=== PATIENT | male | born 1995 | race Hispanic/Latino ===

== ENCOUNTER 2025-01-14 14:52 | Emergency (ER) | payer OTHER ==
[~2025-01-14] VITALS: Ht 172.7 cm; Wt 72.6 kg
--- NOTE | 2025-01-14 15:42 | ERN ---
General Chief Complaint: Abdominal Pain Stated Complaint: ABD PAIN Time Seen by MD: 14:54 Source: patient History of Present Illness Initial Comments Anand, a 29 year old male patient came to the ER with symptoms of left upper quadrant pain. Patient has had these symptoms for the last 2 weeks. Patient describes sensation mostly as bloating. Patient rates the pain as 8/10 last night but around 5 today. Pt followed up with his GI doc this week and was evaluated for pancreatitis, but his labs came back normal. Pt used Dicyclomine for the pain, but says it only gave him little relief. Patient denies nausea, vomiting, diarrhea, bloody stools, fever, and change in bowel movements. Pt has a PMH of Ulcerative colitis and is in remission on Entyvio. His recent colonoscopies did not show any inflammation or ulcers. Allergies: Coded Allergies: No Known Drug Allergies (Unverified Allergy, Unknown, 01/14/25) Past Medical History Past Medical History: Other Medical History Other: ulcerative colitis Past Surgical History: None ROS Dictation CONSTITUTIONAL: No chills, no fever, no weakness, no diaphoresis, no malaise. HEAD/FACE: No signs of trauma. EENT: No eye pain, no blurred vision, no tearing, no double vision, no ear pain, no ear discharge, no nose pain, no nasal congestion, no throat pain, no throat swelling, no mouth pain. RESPIRATORY: No cough, no SOB, no orthopnea, no PND, no wheezing. CARDIOVASCULAR: No chest pain, no edema, no palpitations, no syncope. GASTROINTESTINAL/ABDOMINAL: Left upper quadrant Abdominal pain, no constipation, no diarrhea, no nausea, no vomiting. GENITOURINARY: No abnormal discharge, no dysuria, no frequent urination, no hematuria. No complaints of pain in the genitals. MUSCULOSKELETAL: No back pain, no gout, no joint pain, no joint swelling, no muscle pain, no muscle stiffness, no neck pain. INTEGUMENTARY: No change in color, no change in hair/nails, no dryness, no lesion, no lumps, no rash. NEUROLOGICAL/PSYCH: No anxiety, not depressed, no emotional problem, no headache, no numbness, no pre-existing deficit, no history of seizures, no tremors, no weakness. HEMATOLOGIC/LYMPHATIC: Not anemic, no history of blood clots, no apparent bleeding, no bruising, glands not swollen. All Systems Negative, Except as Noted. MDM CC: Epigastric pain for the last two weeks Historian: Patient Comorbidities: Ulcerative colitis Limitations by social determinants of health: None Differential diagnosis: Gastritis, pancreatitis, biliary disease, other Vital signs are stable Patient had lab work done in the outside facility including CBC, metabolic panel and lipase. Very low suspicion for life threats. We will not repeat. Got a CT scan of the abdomen and pelvis does not show any major abnormalities He is symptoms are most consistent with a gastritis. He is p.o. tolerant nontoxic in appearance. There is no signs of surgical pathology. Stable vital signs normal imaging and recent normal labs. We will DC to PCP follow up. We will discharge with a prescription for Protonix. ED Course Orders Procedure Category Date Status Time Saline Lock Iv CPOE 01/14/25 Transmitted 15:40 Iohexol (Omnipaque) PHA 01/14/25 Complete 16:14 Ct Abdomen/Pelvis CT 01/14/25 Resulted W/Contrast 16:14 Current Medications Medications (Trade) Dose Ordered Sig/Helen Route PRN Reason Start Time Stop Time Status Last Admin Dose Admin Iohexol (Omnipaque) 35,000 mg STK-MED ONCE IV 01/14/25 16:14 01/14/25 16:14 DC Vital Signs Date Time Temp Pulse Resp B/P (MAP) Pulse Ox O2 Delivery O2 Flow Rate FiO2 01/14/25 15:00 98.1 94 18 135/91 100 Room Air* 0 21 01/14/25 14:56 98.1 94 18 135/91 100 Room Air 0 DX & DISP Disposition: Discharge Departure Impression: Primary Impression: Gastritis Condition: Stable Scripts Pantoprazole Sodium (Pantoprazole Sodium) 20 Mg Tablet. 1 TAB PO DAILY for 30 Days, #30 TAB 0 Refills Prov: ACOSTA QURESHI DO 01/14/25 I performed a substantive portion of the visit. I have reviewed and personally made and approve the management plan that is documented in the notes by myself with MAGDI/resident. I acknowledged full responsibility for the patient's management plan. JOHN ALVARADO MD Jan 14, 2025 15:42 ACOSTA QURESHI DO Jan 14, 2025 17:17
[2025-01-14] MEDS ORDERED: IOHEXOL 350 MG/ML 100ML INFUS..BTL IV ONE (16:14)
--- NOTE | 2025-01-14 17:05 | HMCIMG ---
EXAM: CT Abdomen and Pelvis with IV contrast CLINICAL HISTORY: ABD PAIN TECHNIQUE: Axial computed tomography images of the abdomen and pelvis with intravenous contrast. CONTRAST: with intravenous contrast. COMPARISON: None provided. FINDINGS: LUNG BASES: The lung bases appear clear. No pleural effusions are seen. LIVER: Unremarkable. GALLBLADDER AND BILE DUCTS: The gallbladder appears within normal limits. No radioopaque gallstones are seen. No biliary ductal dilatation is evident. PANCREAS: Unremarkable. SPLEEN: Unremarkable. ADRENAL GLANDS: Unremarkable. KIDNEYS, URETERS, AND BLADDER: The kidneys appear within normal limits. There is no hydronephrosis or hydroureter. No urinary calculi are seen. STOMACH AND BOWEL: Equivocal indistinctness, mucosal thickening rectosigmoid colon which could be due to proctitis. Correlation clinically recommended APPENDIX: No focal abscess/inflammatory process. Appendix identified appears. PERITONEUM: No free fluid. No free air. LYMPH NODES: No lymphadenopathy is evident. REPRODUCTIVE: Unremarkable as visualized. VASCULATURE: No evidence of abdominal aortic aneurysm. BONES: No aggressive appearing osseous lesion. No acute osseous pathology evident. IMPRESSION: 1. No focal abscess/inflammatory process. Appendix identified appears. 2. Equivocal indistinctness, mucosal thickening rectosigmoid colon which could be due to proctitis. Correlation clinically recommended /[place]
[2025-01-14] MEDS ORDERED: PANT20TA18 PO (17:16)
[2025-01-14 17:20] VITALS: BP 129/87; PULSE 85; RESP 18; TEMP 98.1; O2SAT 100
== END 2025-01-14 17:24 | disposition home or self-care (01) ==
LOC: EDH 14:52
DX: K29.70 Gastritis, unspecified, without bleeding (principal)
CPT/HCPCS: 99285; 74177; Q9967